=== PATIENT | female | born 1990 | race African-American/Black ===

== ENCOUNTER → 2024-04-08 | Emergency (ER) | payer OTHER ==
[~2024-04-08] VITALS: Ht 162.6 cm; Wt 79.8 kg
[~2024-04-08] MED LIST: LIDOCAINE 1%, 20 ML MDV 20 ML ONE; NAPR-690 PO; TRAM50TA2 PO
[2024-04-08 21:03] VITALS: BP_SYST 113; PULSE 83; RESP 18; TEMP 98.7; O2SAT 98
[2024-04-08] MEDS: HYDROmorphone 1 MG/ML INJ. CARTRIDGE IVP ONE (21:50)
== END | disposition home or self-care (01) ==
LOC: SED 20:35
DX: N75.0 Cyst of Bartholin's gland (principal); Z79.899 Other long term (current) drug therapy
CPT/HCPCS: 99284; 96374; 56420; J2001; J1170